=== PATIENT | female | born 1985 | race Caucasian/White ===

== ENCOUNTER 2017-08-04 19:04 | Emergency (ER) | payer OTHER ==
--- NOTE | 2017-08-04 19:15 | EDPHY ---
H & P Stated Complaint: L sided abd pain - Personal History LMP (Females 10-55): Irregular Current Tetanus/Diphtheria Vaccine: Unsure Current Tetanus Diphtheria and Acellular Pertussis (TDAP): Unsure - Medical/Surgical History Hx Asthma: No Hx Chronic Respiratory Disease: No Hx Diabetes: No Hx Cardiac Disease: No Hx Renal Disease: No Hx Cirrhosis: No Hx Alcoholism: No Hx HIV/AIDS: No Hx Splenectomy or Spleen Trauma: No Other PMH: ovarian, endometriosis, hipdysplasia, multible hipsurgeries, zagans procedure last monday - Social History Smoking Status: Never smoked Time Seen by Provider: 08/04/17 19:15 Constitutional: Initial Vital Signs Temperature (C) 36.6 C 08/04/17 19:06 Heart Rate 64 08/04/17 19:06 Respiratory Rate 16 08/04/17 19:06 Blood Pressure 130/93 H 08/04/17 19:06 O2 Sat (%) 97 08/04/17 19:06 O2 Delivery Mode Room Air Allergies/Adverse Reactions: No Known Allergies Allergy (Unverified 03/17/16 19:16) Home Medications: Medication Instructions Recorded Hydrocodon-Acetaminophen 5-325 02/27/16 Ms Contin/Oramorph 15 mg (*) 02/27/16 Oxycodone HCl 02/27/16 ALPRAZolam [Xanax 0.5 MG (*)] 0.5 mg PO TID PRN #15 tab 03/17/16 buPROPion [Wellbutrin 100mg (*)] 08/04/17 Medical Decision Making - Diagnostics Imaging: Discussed imaging studies w/ call taker Radiologist ED Course/Re-evaluation: CHIEF COMPLAINT: Left-sided abdominal pain HISTORY OF PRESENT ILLNESS: The patient is a 31 y/o female with a history of ovarian cysts and endometriosis complaining of left-sided lower abdominal pain onset this morning. Several hours ago the pain exacerbated and began to radiate to the right side. She is also having sharp left-sided shoulder pain. Denies history of kidney stones. Denies urinary complaints, chest pain, shortness of breath, bowel complaints, fever, paresthesias, numbness. REVIEW OF SYSTEMS: A 10 point review of systems was performed and is negative with the exception of the elements mentioned in the history of present illness. PHYSICAL EXAM: HR, BP, O2 Sat, RR. Temp noted General Appearance: Alert, well hydrated, appropriate, and non-toxic appearing. Head: Atraumatic without scalp tenderness or obvious injury Eyes: Pupils equal, round, reactive to light and accommodation, EOMI, no trauma , no injection. Ears: Clear bilaterally, no perforation, normal landmarks Nose: Atraumatic, no rhinorrhea, clear. Throat: There is no erythema or exudates, no lesions, normal tonsils, mucus membranes moist. Neck: Supple, nontender, no lymphadenopathy. Respiratory: No retractions, no distress, no wheezes, and no accessory muscle use. Lungs are clear to auscultation bilaterally. Cardiovascular: Regular rate and rhythm, no murmurs, rubs, or gallops. Good capillary refill all extremities. Gastrointestinal: LLQ non-reproducible pain. Abdomen is soft, non-distended, no masses, no rebound, no guarding, no peritoneal signs. Musculoskeletal: Normal active ROM of all extremities, atraumatic. Neurological: Alert, appropriate, and interactive. Non-focal neuro. Skin: No rashes, good turgor, no nodules on palpation. Past medical history: Ovarian cysts, endometriosis, hip dysplasia, Past surgical history: Multiple hip surgeries Family history: Denies Social history: at bedside, lives in [place], employed DIAGNOSTICS/PROCEDURES/CRITICAL CARE TIME: Kidney US: Findings pending at shift change Pelvic US: Findings pending at shift change DIFFERENTIAL DIAGNOSIS: The differential diagnosis for the patient's abdominal pain included but was not limited to ovarian cyst, pelvic inflammatory disease, ovarian torsion, urinary tract infection, ectopic , cholecystitis, and appendicitis. MEDICAL DECISION MAKING: The patient is a 31 y/o female with a history of ovarian cysts and endometriosis presenting with left-sided lower abdominal pain onset this morning. On exam I am not able to reproduce this pain with palpation and her abdomen is benign. Labs, kidney and pelvic US ordered. She is denying pain medication at this time. 1L IV NS given. 1930: Patient has blood in her urine. 2099: Patient care has been turned over to Dr. Langford at shift change, imaging results still pending. (Papo Reinoso) I assumed care of this patient at 9:00 p.m.. Pelvic ultrasound reported by to me via telephone by radiologist as negative/normal, he notes a small amount of fluid in the cervical canal. These results were relayed to the patient. She is being discharged home. She is not in pain. Questions were answered. (Lela Langford) - Data Points Laboratory Results: Laboratory Results 08/04/17 19:35 08/04/17 19:35 Medications Given: Discontinued Medications Sodium Chloride (Ns) 1,000 mls @ 0 mls/hr IV EDNOW ONE; Wide Open PRN Reason: Protocol Stop: 08/04/17 19:20 Last Admin: 08/04/17 19:36 Dose: 1,000 mls Departure - Departure Disposition: Home, Routine, Self-Care Clinical Impression: Kidney stone on left side Condition: Good Instructions: Kidney Stones (ED), How to Strain Your Urine (ED), Flank Pain (ED ) Additional Instructions: 1. Followup with your urologist within one week. 2. Return to the emergency apartment for fever, severe pain, inability to urinate or other concerns. 3. Strain urine to try and catch the kidney stone and bring this to the urology appointment. Referrals: Constanza Read NP [Primary Care Provider] - As per Instructions Cailin Motta MD [Medical Doctor] - As per Instructions Report Scribed for: Papo Reinoso Report Scribed by: Josette Conklin Date of Report: 08/04/17 Time of Report: 19:19
[2017-08-04] MEDS ORDERED: NS 1,000 ML IV ONE (19:19)
[2017-08-04 20:02] LABS: PLATELET COUNT 343 10^3/uL (150-400)
[2017-08-04 22:34] VITALS: BP 114/78
== END 2017-08-04 22:34 | disposition home or self-care (01) ==
DX: N20.0 Calculus of kidney (principal); E86.9 Volume depletion, unspecified
CPT/HCPCS: 82947-QW

== ENCOUNTER 2018-07-14 15:04 | Inpatient (IN) | payer OTHER ==
--- NOTE | 2018-07-14 16:26 | EDPHY ---
H & P Stated Complaint: L shoulder pain/swelling Time Seen by Provider: 07/14/18 16:00 HPI/ROS: CHIEF COMPLAINT: Left shoulder pain and left forearm swelling HISTORY OF PRESENT ILLNESS: The patient is a healthy 32-year-old female who comes to the emergency department complaining of left shoulder pain that began about a week ago while they were driving home from a road trip. She states that it hurts to raise her arm above her head. She thought that maybe she slept on it wrong or drove awkwardly in the car. It is continued to bother her but is not overwhelmingly painful or limiting. However over the last couple of days she also noticed some swelling in her left forearm. She has not had any weakness or limitations. She does complain of some paresthesias than tip of her 2nd 3rd and 4th digit. None on the palm or dorsal aspect of her hand wrist or forearm. She denies neck pain. She denies headache. 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 Severity: Moderate Modifying factors: None REVIEW OF SYSTEMS: Constitutional: denies: chills, fever, recent illness, recent injury EENTM: denies: blurred vision, double vision, nose congestion Respiratory: denies: cough, shortness of breath Cardiac: denies: chest pain, irregular heart rate, lightheadedness, palpitations Gastrointestinal/Abdominal: denies: abdominal pain, diarrhea, nausea, vomiting, blood streaked stools Genitourinary: denies: dysuria, frequency, hematuria, pain Musculoskeletal: denies: joint pain, muscle pain Skin: denies: lesions, rash, jaundice, bruising Neurological: denies: headache, numbness, paresthesia, tingling, dizziness, weakness Hematologic/Lymphatic: denies: blood clots, easy bleeding, easy bruising Immunologic/allergic: denies: HIV/AIDS, transplant 10 systems reviewed and negative except as noted EXAM: GENERAL: Well-appearing, well-nourished and in no acute distress. HEAD: Atraumatic, normocephalic. EYES: Pupils equal round and reactive to light, extraocular movements intact, sclera anicteric, conjunctiva are normal. ENT: TMs normal, nares patent, oropharynx clear without exudates. Moist mucous membranes. NECK: Normal range of motion, supple without lymphadenopathy or JVD. LUNGS: Breath sounds clear to auscultation bilaterally and equal. No wheezes rales or rhonchi. HEART: Regular rate and rhythm without murmurs, rubs or gallops. ABDOMEN: Soft, nontender, normoactive bowel sounds. No guarding, no rebound. No masses appreciated. BACK: No CVA tenderness, no spinal tenderness, step-offs or deformities EXTREMITIES: Normal range of motion, no pitting or edema. No clubbing or cyanosis. NEUROLOGICAL: Cranial nerves II through XII grossly intact. Normal speech, normal gait. 5/5 strength, normal movement in all extremities, normal sensation , normal reflexes PSYCH: Normal mood, normal affect. SKIN: Warm, dry, normal turgor, no visible rashes or lesions. Source: Patient, EMS Exam Limitations: No limitations - Personal History LMP (Females 10-55): IUD In Place Current Tetanus/Diphtheria Vaccine: Yes - Medical/Surgical History Hx Asthma: No Hx Chronic Respiratory Disease: No Hx Diabetes: No Hx Cardiac Disease: No Hx Renal Disease: No Hx Cirrhosis: No Hx Alcoholism: No Hx HIV/AIDS: No Hx Splenectomy or Spleen Trauma: No Other PMH: ovarian, endometriosis, hipdysplasia, multible hipsurgeries, charly procedure last monday - Social History Smoking Status: Never smoked Constitutional: Initial Vital Signs Temperature (C) 36.6 C 07/14/18 15:18 Heart Rate 89 07/14/18 15:18 Respiratory Rate 16 07/14/18 15:18 Blood Pressure 117/85 H 07/14/18 15:18 O2 Sat (%) 99 07/14/18 15:18 O2 Delivery Mode Room Air Allergies/Adverse Reactions: No Known Allergies Allergy (Unverified 07/14/18 15:21) Home Medications: Medication Instructions Recorded Bupropion HCl [Wellbutrin Xl] 300 mg PO DAILY 07/14/18 Apixaban [Eliquis] 10 mg PO BID #75 tab 07/16/18 Medical Decision Making - Diagnostics EKG Interpretation: An EKG obtained and was read and documented in trace view. Please see trace view for full reading and report. Sinus rhythm, early repolarization consistent with thin chest wall, similar to previous EKGs. Imaging: Discussed imaging studies w/ manager document Radiologist ED Course/Re-evaluation: I discussed the case with interventional Radiology Dr. Robles as well as with the patient and her . We will admit for anticoagulation and evaluation tomorrow. He states that there is good she and she will not require intravenous tPA. He spoke with the patient. 5:30 p.m. discussed the case with Dr. Mondragon who will admit. Differential Diagnosis: Partial list of the Differential diagnosis considered include but were not limited to; upper extremity DVT, thoracic outlet syndrome, coagulopathy and although unlikely based on the history and physical exam, I also considered infection, neuropathy. - Data Points Laboratory Results: Laboratory Results 07/15/18 04:57 07/15/18 04:57 Medications Given: Discontinued Medications Acetaminophen (Tylenol) 650 mg PO Q4HRS PRN PRN Reason: Pain, Mild/Fever, Can Take PO Stop: 01/10/19 17:47 Last Admin: 07/16/18 13:26 Dose: 650 mg Hydrocodone Bitart/Acetaminophen ([place] 5/325) 1 - 2 tab PO Q4HRS PRN PRN Reason: Pain, Moderate Able to Take PO Stop: 07/24/18 17:47 Last Admin: 07/15/18 21:10 Dose: 0.5 tab Apixaban (Eliquis) 10 mg PO BID ELISE Stop: 01/12/19 18:59 Last Admin: 07/16/18 18:38 Dose: 10 mg Bupropion HCl (Wellbutrin Xl) 300 mg PO DAILY [facility] Stop: 01/10/19 18:44 Last Admin: 07/16/18 08:12 Dose: 300 mg Enoxaparin Sodium (Lovenox) 60 mg SC EDNOW ONE Stop: 07/14/18 17:34 Last Admin: 07/14/18 18:21 Dose: 60 mg Fentanyl (Sublimaze) 0 mcg IVP ONCALL PRN PRN Reason: Per provider during procedure Stop: 07/15/18 16:40 Last Admin: 07/15/18 15:50 Dose: 100 mcg Heparin Sodium (Porcine) (Heparin Injection) 0 unit IVP EDNOW ONE Stop: 07/15/18 10:35 Last Admin: 07/15/18 13:25 Dose: Not Given Heparin Sodium (Porcine) (Heparin Injection) 0 unit IVP ONCE ONE Stop: 07/15/18 10:46 Last Admin: 07/15/18 11:19 Dose: 4,400 units Heparin Sodium (Porcine) (Heparin 50 Units/Ml (Premix)) 500 mls @ 0 mls/hr IV EDNOW ONE; Per Protocol PRN Reason: Protocol Stop: 07/15/18 10:35 Last Admin: 07/15/18 13:25 Dose: Not Given Heparin Sodium (Porcine) (Heparin 50 Units/Ml (Premix)) 500 mls @ 0 mls/hr IV CONT ONE; Per Protocol PRN Reason: Protocol Stop: 07/15/18 11:01 Last Admin: 07/15/18 11:24 Dose: 500 mls Lactated Ringer's (Lr) 1,000 mls @ 125 mls/hr IV CONT ELISE Stop: 01/11/19 11:59 Last Admin: 07/15/18 18:00 Dose: 1,000 mls Alteplase, Recombinant 5 mg/ (Sodium Chloride) 100 mls @ 0 mls/hr IV CONT ELISE; Per Protocol PRN Reason: Protocol Stop: 07/16/18 19:00 Last Admin: 07/16/18 15:44 Dose: 100 mls Heparin Sodium (Porcine) (Heparin 50 Units/Ml (Premix)) 500 mls @ 0 mls/hr IV CONT ELISE PRN Reason: As Directed Stop: 07/16/18 19:00 Last Admin: 07/15/18 16:15 Dose: 500 mls Lorazepam (Ativan) 0.5 - 1 mg PO Q8HRS PRN PRN Reason: Anxiety, Able to Take PO Stop: 01/10/19 17:47 Last Admin: 07/16/18 12:33 Dose: 0.5 mg Midazolam HCl (Versed) 0 mg IVP ONCALL PRN PRN Reason: Per provider during procedure Stop: 07/15/18 16:40 Last Admin: 07/15/18 15:50 Dose: 2 mg Ondansetron HCl (Zofran) 4 mg IVP Q4HRS PRN PRN Reason: Nausea/Vomiting, Can't Take PO Stop: 01/10/19 17:47 Last Admin: 07/16/18 12:33 Dose: 4 mg Ondansetron HCl (Zofran Odt) 4 mg PO Q4HRS PRN PRN Reason: Nausea/Vomiting, Use 1st Stop: 01/10/19 17:47 Last Admin: 07/15/18 21:09 Dose: 4 mg Point of Care Test Results: Chemistry 07/14/18 16:28 POC Troponin I 0.02 ng/mL ng/mL (0.00-0.08) Departure - Departure Disposition: Home, Routine, Self-Care Clinical Impression: DVT of upper extremity (deep vein thrombosis) Qualifiers: Affected thrombotic vein of extremity: unspecified vein of extremity Chronicity : acute Laterality: left Qualified Code(s): I82.622 - Acute embolism and thrombosis of deep veins of left upper extremity Condition: Good
[2018-07-14 16:34] LABS: PLATELET COUNT 330 10^3/uL (150-400)
--- NOTE | 2018-07-14 16:35 | CPEKG ---
Test Reason : OPEN Blood Pressure : / mmHG Vent. Rate : 076 BPM Atrial Rate : 077 BPM P-R Int : 145 ms QRS Dur : 073 ms QT Int : 355 ms P-R-T Axes : 029 063 039 degrees QTc Int : 400 ms Sinus rhythm Anterior infarct, possibly acute ST elevation, consider inferior injury Lateral leads are also involved Confirmed by Titi Sheth ([id number]) on 07/14/2018 4:35:19 PM Referred By: TITI SHETH Confirmed By:Titi Sheth
[2018-07-14 16:42] LABS: INR 1.17 (0.83-1.16); PROTIME(PATIENT) 14.4 SEC (12.0-15.0)
[2018-07-14] MEDS ORDERED: ENOXAPARIN 60 MG/0.6 ML SYR SC ONE (17:33)
[2018-07-14] MEDS ORDERED: LORazepam 0.5 MG TAB PO PRN (17:48)
[2018-07-14] MEDS ORDERED: diphenhydrAMINE 25 MG CAP PO PRN (17:48)
[2018-07-14] MEDS ORDERED: HYDROCODONE/APAP 5/325 TAB PO PRN (17:48)
[2018-07-14] MEDS ORDERED: ONDANSETRON DISINTEGRATING 4 MG TAB PO PRN (17:48)
--- NOTE | 2018-07-14 18:22 | PDGENHP ---
History and Physical - Chief Complaint left arm pain/swelling - History of Present Illness So source-patient provides history appears reliable. Her is bedside. EMR was reviewed and case discussed with ED provider HPI - is a pleasant 32-year-old female with past medical history significant for anxiety, PVCs, endometriosis who presents emergency department today with complaints of 1 week increasing left subscapular/shoulder pain and several days of right forearm swelling and pain. Patient and her were on a road trip for 2 days traveling back to [place] last week when she noted the left shoulder discomfort. Over the last several days with swelling patient has noted some numbness tingling over the 2nd 3rd 4th fingers. Patient initially thought that she had slept not position on her shoulder and/or was having issues with thoracic outlet syndrome but when she had progression of swelling and pain in her left forearm she presented to the ED for evaluation. Patient denies any chest pain, palpitations or shortness of breath. She denies any lower extremity or calf pain or swelling. Patient otherwise has been feeling well. In the ED, ultrasound of the upper extremity reveals DVT extending from the sub [place] V into the axillary vein with superficial thrombus to left basilar vein She does not smoke. She is on a Loestrin daily. No family history of DVT. History Information - Allergies/Home Medication List Allergies/Adverse Reactions: No Known Allergies Allergy (Unverified 07/14/18 15:21) Home Medications: Bupropion HCl [Wellbutrin Xl] 300 mg PO DAILY 07/14/18 [Last Taken 07/14/18] Norethindrone-E.estradiol-Iron [Loestrin Fe 1-20 Tablet] 1 each PO HS 07/14/18 [ Last Taken 07/13/18] I have personally reviewed and updated: family history, medical history, social history, surgical history Past Medical History: Reviewed patient's medication list not yet updated. Patient takes Loestrin daily, and bupropion. - Past Medical History Additional medical history: Anxiety, endometriosis, hip dysplasia. Possible history of thoracic outlet syndrome on the left - Surgical History Additional surgical history: Bilateral hip surgery for hip dysplasia - Family History Additional family history: Negative for DVT/PE - Social History Smoking Status: Never smoked Alcohol Use: None Drug Use: None Additional social history: Patient is lives with her . Review of Systems Review of Systems: ROS: 10pt was reviewed & negative except for what was stated in HPI & below Constitutional: Reports: no symptoms Cardiac: Reports: no symptoms Respiratory: Reports: no symptoms Gastrointestinal: Reports: no symptoms Muscolosketal: Reports: other (Left shoulder and arm pain see HPI) Neurological: Reports: numbness, tingling Physical Exam Physical Exam: Selected Entries 07/14/18 15:18 Blood Pressure Automatic Method Heart Rate 89 Respiratory 16 Rate O2 Sat (%) 99 Temperature (C) 36.6 C Blood Pressure 117/85 H Mean Arterial 95 Pressure (MAP) O2 Delivery Room Air Mode Temperature Oral Source Temp Pulse Resp BP Pulse Ox 36.6 C 76 16 126/86 H 99 07/14/18 15:18 07/14/18 17:47 07/14/18 15:18 07/14/18 17:47 07/14/18 17:47 Constitutional: no apparent distress, uncomfortable (Slightly uncomfortable with movement of her left upper extremity.), other (Patient's is at bedside.) Eyes: PERRL, anicteric sclera, EOMI, No scleral injection Ears, Nose, Mouth, Throat: moist mucous membranes Cardiovascular: regular rate and rhythym, no murmur, rub, or gallop, pulses symmetric bilaterally, No edema Peripheral Pulses: 2+: dorsalis-pedis (R), dorsalis-pedis (L) Respiratory: no respiratory distress, no rales or rhonchi, clear to auscultation , No inspiratory crackles Gastrointestinal: normoactive bowel sounds, soft, non-tender abdomen, no palpable masses Genitourinary: no bladder tenderness, No cowan in urethra Skin: warm, normal color, no rashes or abrasions Musculoskeletal: full muscle strength, other (Patient moves all extremities. Mildly increased swelling left forearm compared to the right.) Neurologic: AAOx3, sensation intact bilaterally, other (Grossly nonfocal. Moves all extremities.), No facial droop Psychiatric: interacting appropriately, not encephalopathic, thought process linear Lab Data & Imaging Review 07/14/18 16:20 07/14/18 16:20 WBC 10.55 10^3/uL (3.80-9.50) H 07/14/18 16:20 RBC 4.44 10^6/uL (4.18-5.33) 07/14/18 16:20 Hgb 14.4 g/dL (12.6-16.3) 07/14/18 16:20 Hct 43.5 % (38.0-47.0) 07/14/18 16:20 MCV 98.0 fL (81.5-99.8) 07/14/18 16:20 MCH 32.4 pg (27.9-34.1) 07/14/18 16:20 MCHC 33.1 g/dL (32.4-36.7) 07/14/18 16:20 RDW 12.3 % (11.5-15.2) 07/14/18 16:20 Plt Count 330 10^3/uL (150-400) 07/14/18 16:20 MPV 9.2 fL (8.7-11.7) 07/14/18 16:20 Neut % (Auto) 77.5 % (39.3-74.2) H 07/14/18 16:20 Lymph % (Auto) 16.9 % (15.0-45.0) 07/14/18 16:20 [place] % (Auto) 4.2 % (4.5-13.0) L 07/14/18 16:20 Eos % (Auto) 0.3 % (0.6-7.6) L 07/14/18 16:20 Baso % (Auto) 0.7 % (0.3-1.7) 07/14/18 16:20 Nucleat RBC Rel Count 0.0 % (0.0-0.2) 07/14/18 16:20 Absolute Neuts (auto) 8.19 10^3/uL (1.70-6.50) H 07/14/18 16:20 Absolute Lymphs (auto) 1.78 10^3/uL (1.00-3.00) 07/14/18 16:20 Absolute Monos (auto) 0.44 10^3/uL (0.30-0.80) 07/14/18 16:20 Absolute Eos (auto) 0.03 10^3/uL (0.03-0.40) 07/14/18 16:20 Absolute Basos (auto) 0.07 10^3/uL (0.02-0.10) 07/14/18 16:20 Absolute Nucleated RBC 0.00 10^3/uL (0-0.01) 07/14/18 16:20 Immature Gran % 0.4 % (0.0-1.1) 07/14/18 16:20 Immature Gran # 0.04 10^3/uL (0.00-0.10) 07/14/18 16:20 PT 14.4 SEC (12.0-15.0) 07/14/18 16:20 INR 1.17 (0.83-1.16) H 07/14/18 16:20 APTT 25.0 SEC (23.0-38.0) 07/14/18 16:20 D-Dimer 1.17 ug/mLFEU (0.00-0.50) H 07/14/18 16:20 Sodium 140 mEq/L (135-145) 07/14/18 16:20 Potassium 4.1 mEq/L (3.5-5.2) 07/14/18 16:20 Chloride 105 mEq/L (97-110) 07/14/18 16:20 Carbon Dioxide 22 mEq/l (22-31) 07/14/18 16:20 Anion Gap 13 mEq/L (6-14) 07/14/18 16:20 BUN 15 mg/dL (7-23) 07/14/18 16:20 Creatinine 0.8 mg/dL (0.6-1.0) 07/14/18 16:20 Estimated GFR > 60 07/14/18 16:20 Glucose 100 mg/dL (70-100) 07/14/18 16:20 Calcium 9.5 mg/dL (8.5-10.4) 07/14/18 16:20 POC Troponin I 0.02 ng/mL (0.00-0.08) 07/14/18 16:28 Beta HCG, Qual NEGATIVE 07/14/18 16:20 Imaging Review: Chest 2 View History: Chest Pain. Comparison: February 16 2016 Findings: No focal airspace consolidation, pleural effusion, or pneumothorax. Cardiac silhouette and pulmonary vascularity are within normal limits. Skeletal structures are age- appropriate. Impression: No acute cardiopulmonary process. Dictated By: Holland Cortes MD Duplex Doppler Venous Sonography with Color and Spectral Analysis of the Left Upper Extremity Clinical History: 32-year-old female with left arm pain. Rule out DVT. Technique: A high frequency transducer was used for imaging and Doppler study of the veins of the left upper extremity. Pulsed Doppler and color Doppler were utilized, along with various maneuvers to assess flow in the veins. Cursory evaluation of the contralateral arm was obtained for comparison purposes. Comparison Study: None. Findings: There is deep venous thrombosis involving the left axillary and subclavian vein, and superficial venous thrombosis involving the upper portion of the left basilic vein. The visualized lower left internal jugular vein and innominate vein, the left cephalic vein, brachial vein(s), and the radial, ulnar, and the axillary vein are patent. There is no localized fluid collection. Impression: There is deep venous thrombosis involving the left axillary and subclavian vein, and superficial venous thrombosis involving the upper portion of the left basilic vein. Findings were discussed with TITI SHETH MD at 17:02, on 07/14/2018. Dictated By: Justin Mendez MD Visualized and Interpreted Chest x-ray results: Yes Assessment & Plan Assessment: Pleasant 32-year-old female with history of endometriosis on OCP otherwise healthy who presents emergency department today with complaints of 1 week a left shoulder collar bone pain and several days of left forearm swelling. #DVT of upper extremity (deep vein thrombosis) (Acute) - patient seen and evaluated by Dr. Sophia romo with IR who recommended subcu Lovenox at this time and make patient NPO. Potential for direct thrombolytics therapy in the morning if patient without any improvement in her symptoms tomorrow. Patient without any family history of DVTs. She has multiple orthopedic surgeries previously without any personal history of DVTs in the past. She is chronically on Loestrin at this time of advised her to hold her estrogen supplementation. She does not smoke. She did have recent [address] trip a week ago when her symptoms started. She denies any local injuries or trauma. # acute pain - pain medications will be available p.r.n.. FEN - patient tolerating oral hydration well. Will encourage her to continue drink water. She did report that earlier today she was on a several mi bike ride. Will hold off on IV fluids. Advised patient if she feels dehydrated overnight while NPO that we can add on continuous fluids. Electrolytes are adequate did not require placement at this time. Regular diet until midnight then NPO as per IR request. PPX - therapeutic lovenox Cor status-full Disposition-patient admitted observation status at this time pending re- evaluation in the morning. May require additional hospital stay depending if patient should proceed with direct thrombolytic therapy tomorrow.
[2018-07-14] MEDS: buPROPion XL 150 MG TAB PO SCH (21:50)
[2018-07-15 05:27] LABS: PLATELET COUNT 298 10^3/uL (150-400)
[2018-07-15 05:35] LABS: INR 1.18 (0.83-1.16); PROTIME(PATIENT) 14.5 SEC (12.0-15.0)
[2018-07-15] MEDS: buPROPion XL 150 MG TAB PO SCH (08:35)
[2018-07-15] MEDS: ACETAMINOPHEN 325 MG TAB PO PRN ×3 (08:36→21:02)
[2018-07-15] MEDS ORDERED: HEPARIN/DEXTROSE 500 ML IV ONE ×2 (10:34→11:00)
[2018-07-15] MEDS ORDERED: HEPARIN 10,000 UNIT/10 ML MDV (1,000 UNIT/ML) IVP ONE ×2 (10:34→10:45)
--- NOTE | 2018-07-15 10:44 | ASMTCMCOM ---
CM Note CM Note Notes: Pt is a 32 y/o female admitted for upper extremity DVT. Pt will most likely d/c independent when medically stable. No therapies ordered at this time. CM available for changes. Plan: Independent Date Signed: 07/15/2018 10:44 AM Electronically Signed By:JESSIE Lou
--- NOTE | 2018-07-15 11:52 | HOSPPROG ---
Hospitalist Progress Note Assessment/Plan: Nelida is a 32-year-old female with history of endometriosis on OCP otherwise healthy who presents emergency department today with complaints of 1 week a left shoulder collar bone pain and several days of left forearm swelling. Today is my first encounter, chart reviewed. *DVT of left upper extremity -on Heparin gtt -reviewed patient's care with Dr Cortes- he will see Nelida today for discussion and likely treatment w TPA -she likely has Thoracic outlet syndrome -she is on Loestrin for control -reviewed her ultrasound-deep venous thrombosis involving the left axillary and subclavian vein, and superficial venous thrombosis involving the upper portion of the left basilic vein. # acute pain -much improved in her left arm -having pain in the subclavian area #plan: continue NPO status, heparin gtt, IV fluids-discussed plan of care w Nelida and her mom. She will require another midnight stay due to the above. Subjective: Nelida said her pain in left arm is much improved, has some pain above the left collar bone area. Objective: Vital Signs Temp Pulse Resp BP Pulse Ox 36.6 C 80 16 102/76 95 07/15/18 08:00 07/15/18 08:00 07/15/18 08:00 07/15/18 08:00 07/15/18 08:00 Laboratory Results 07/15/18 04:57 07/15/18 04:57 07/14/18 07/15/18 07/16/18 05:59 05:59 05:59 Output Total 450 Balance -450 PT 14.5 SEC (12.0-15.0) 07/15/18 04:57 INR 1.18 (0.83-1.16) H 07/15/18 04:57 - Physical Exam Constitutional: no apparent distress, appears nourished, other (slender) Eyes: PERRL Ears, Nose, Mouth, Throat: hearing normal Cardiovascular: regular rate and rhythym Respiratory: no respiratory distress Gastrointestinal: normoactive bowel sounds Skin: warm, other (left arm without any swelling, non tender) Musculoskeletal: full muscle strength Neurologic: AAOx3 Psychiatric: interacting appropriately ICD10 Worksheet Patient Problems: Problems Problem Status Onset DVT of upper extremity (deep vein thrombosis) Acute
[2018-07-15] MEDS: LR 1,000 ML IV SCH ×2 (12:01→18:00)
[2018-07-15] MEDS ORDERED: ALTEPLASE 5 MG in NS 100 ML IV SCH (15:00)
--- NOTE | 2018-07-15 15:12 | PDPROPOC ---
Sedation Plan of Care ASA Classification: ASA 2 Mallampati Score: Class 2 Mallampati Reference Image:
[2018-07-15] MEDS ORDERED: fentaNYL 100 MCG/2 ML INJ ONE (15:29)
[2018-07-15] MEDS ORDERED: NALOXONE HCL 0.4 MG/ML INJ ONE (15:29)
[2018-07-15] MEDS ORDERED: FLUMAZENIL 0.5 MG/5 ML MDV IVP ONE (15:29)
[2018-07-15] MEDS ORDERED: MIDAZOLAM 2 MG/2 ML VIAL ONE (15:29)
[2018-07-15] MEDS: ONDANSETRON 4 MG/2 ML VIAL IVP PRN (15:33)
[2018-07-15] MEDS ORDERED: fentaNYL 100 MCG/2 ML INJ IVP PRN (15:40)
[2018-07-15] MEDS ORDERED: FLUMAZENIL 0.5 MG/5 ML MDV IVP PRN (15:40)
[2018-07-15] MEDS ORDERED: MIDAZOLAM 2 MG/2 ML VIAL IVP PRN (15:40)
[2018-07-15] MEDS ORDERED: NALOXONE HCL 0.4 MG/ML INJ IVP PRN (15:40)
[2018-07-15] MEDS ORDERED: NS 1,000 ML IV SCH (15:45)
[2018-07-15] MEDS ORDERED: HEPARIN/DEXTROSE 25,000 UNIT/500 ML BAG ONE (15:52)
--- NOTE | 2018-07-15 16:07 | PDRADPN ---
Radiology Procedure Note Date of Procedure: 07/15/18 Radiologist: Holland Cortes Anesthesia: IV Sedation Pre-op Diagnosis: subclavian thrombus Post-op Diagnosis: same Procedure: Day 1 lysis Inf/Abcess present in the surg proc area at time of surgery?: No
[2018-07-15] MEDS ORDERED: HEPARIN/DEXTROSE 500 ML IV SCH (16:15)
[2018-07-15] MEDS: ALTEPLASE 5 MG in NS 100 ML IV SCH ×3 (16:15→23:56)
--- NOTE | 2018-07-15 16:43 | PDMN ---
Medical Necessity Medical necessity: [facility] [place] Cardiovascular Surgery or Procedure: 32 yo presents w/ acute DVT to LUE, initially OBS for workup/tx w/ lovenox, IR consulted, heparin gtt started, pt going to IR for thrombolysis procedure w/ tPA , change to IP status 07/15/18@1324 per [employer] order.
[2018-07-15] MEDS ORDERED: IOPAMIDOL (ISOVUE-300) 100 ML BTL ONE (16:48)
[2018-07-16] MEDS: ACETAMINOPHEN 325 MG TAB PO PRN ×3 (03:04→13:26)
[2018-07-16 05:20] LABS: PLATELET COUNT 223 10^3/uL (150-400)
[2018-07-16] MEDS: ALTEPLASE 5 MG in NS 100 ML IV SCH ×3 (05:20→15:44)
[2018-07-16] MEDS: buPROPion XL 150 MG TAB PO SCH (08:12)
[2018-07-16] MEDS: ONDANSETRON 4 MG/2 ML VIAL IVP PRN (12:33)
[2018-07-16] MEDS ORDERED: traMADol 50 MG TAB PO PRN (13:54)
[2018-07-16] MEDS ORDERED: IOPAMIDOL (ISOVUE-300) 100 ML BTL ONE (15:43)
[2018-07-16] MEDS ORDERED: NALOXONE HCL 0.4 MG/ML INJ ONE (15:57)
[2018-07-16] MEDS ORDERED: MIDAZOLAM 2 MG/2 ML VIAL ONE (15:58)
[2018-07-16] MEDS ORDERED: fentaNYL 100 MCG/2 ML INJ ONE (15:58)
[2018-07-16] MEDS ORDERED: FLUMAZENIL 0.5 MG/5 ML MDV IVP ONE (15:58)
--- NOTE | 2018-07-16 16:20 | PDHPUP ---
History & Physical Update H&P update statement: This history and physical update is based on an assessment of the patient which was completed after admission or registration (within 24 hours), but prior to the surgery/procedure. LUE venogram f/u lysis H&P update: H&P reviewed & patient examined, no change in patient's condition since H&P completed
--- NOTE | 2018-07-16 16:23 | PDRADPN ---
Radiology Procedure Note Date of Procedure: 07/16/18 Radiologist: Anibal Hewitt Anesthesia: IV Sedation Pre-op Diagnosis: LUE venous thrombosis Post-op Diagnosis: LUE venous thrombosis Indication: LUE venogram/ TOS Procedure: LUE venogram Finding(s): Improvement of clot with near complete resolution of thrombus with critical, high grade stenosis at right subclavian vein suggestive of venous TOS. Surgical consultation is recommended. Please initiate fully therapeutic anticoagulation after procedure. Inf/Abcess present in the surg proc area at time of surgery?: No
--- NOTE | 2018-07-16 16:43 | GCON ---
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 She just returned from a driving trip to [place], which was not involving any trauma, and pickett s had no history of thromboembolic disease in the past. She has had some shoulder difficulty making it difficult to raise her arms over her head but was unaware of any other diagnoses. She presented t o the emergency room where she was found to have extensive upper extremity deep vein thrombosis. She was initially treated with Lovenox and seen by Interventional Radiology and started on a tPA drip. She is going back this afternoon for a 2nd look and may discontinue it at that time. She does take o ral contraceptives but has no family history of deep vein thrombosis, is a lifelong nonsmoker and no other venous thromboembolic risk factors. REVIEW OF SYSTEMS: Otherwise negative. PAST MEDICAL HISTORY: Includes anxiety, endometriosis, hip dysplasia. PAST SURGICAL HISTORY: She has had bilateral hip surgery in the distant past. FAMILY HISTORY: Noncontributory. SOCIAL HISTORY: She is a nonsmoker. No significant alcohol. CURRENT MEDICATIONS: Include Tylenol, [place], tPA, Wellbutrin, LR, Ativan, morphine, Zofran, normal s tri, Ultram p.r.n. PHYSICAL EXAMINATION: VITAL SIGNS: She is afebrile. Blood pressure 118/73, respirations 16, heart rate 83, oxygen saturation 100% on 2 L. GENERAL: She was alert, awake, no apparent distress and abl e to speak in full sentences without using accessory muscles for breathing. HEENT: Pupils equally r ound and reactive to light, nonicteric and noninjected. Mucous membranes moist without erythema or e xudate. NECK: Supple without adenopathy or jugular vein distention. LUNGS: Breath sounds clear to auscultation bilaterally without wheeze or rales. HEART: Regular rate and rhythm without murmurs, rubs, gallops. ABDOMEN: Soft, nontender, nondistended without hepatosplenomegaly. EXTREMITIES: Sh ow no clubbing, cyanosis, or edema. Her left upper extremity showed no evidence of edema. It was no ntender. NEUROLOGIC: Exam was nonfocal including cranial nerves, deep tendon reflexes. SKIN: Warm , dry, without evidence of rash. OBJECTIVE DATA: Includes ultrasound findings as described above. White count is normal. Hematocrit was 39 on admission, 35 today, platelets normal. Basic metabolic panel was also normal. ASSESSMENT PLAN: Upper extremity deep vein thrombosis. It is possible she has idiopathic thoracic o utlet syndrome that would lead to this possibility and she should eventually undergo evaluation valdez reyes by a vascular surgeon to determine whether this is in fact true or not. She is getting tPA now. Her oral contraceptives alone I think are a minor risk factor for venous thromboembolic disease, and I do not think it would result in this extensive disease. Subsequently, I did send a Factor V Leide n, lupus anticoagulant and prothrombin 2210a for now to see if this would impact. In this acute sett ing, it is difficult to do a hypercoagulable workup at this time. She does appear to be fairly stabl e and probably okay to discharge once the tPA is completed. I would anticoagulate her for at least 3 months. We could consider Hematology consult as an outpatient as well. /[id number]/MODL
[2018-07-16] MEDS ORDERED: APIXABAN 5 MG TAB PO SCH (19:00)
[2018-07-16 19:31] VITALS: BP 124/86
--- NOTE | 2018-07-16 19:40 | GDS ---
[f rep st] DISCHARGE SUMMARY DISCHARGE DIAGNOSES: 1. Upper extremity deep venous thrombosis due to thoracic outlet syndrome. 2. Status post tissue plasminogen activator. 3. 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 Upon presentation to the emergency room, upper extremity ultrasound re vealed DVT extending from the subclavian vein into the axillary vein with a superficial thrombosis in the left basilar vein. She is on daily control. She was admitted to the ICU and underwent lo calized tPA therapy with Interventional Radiology. She was found to have high-grade stenosis of the right subclavian vein suggestive of a thoracic outlet syndrome. TPA had a great result with near com plete resolution of the thrombus. She has been cleared to discharge on anticoagulation therapy. She will begin Eliquis this evening 2 hours postprocedure as recommended by Dr. Hewitt. She wishes to go home tonight once her observation period post IR procedure is complete. Outpatient surgical cons ultation is recommended. She may need 1st rib resection. Etiology of her clot is more likely anatom ic than a hypercoagulable state, but we did recommend discontinuing control. Hypercoagulable t esting was ordered and is pending at discharge. DISCHARGE MEDICATIONS: 1. Please see computerized record for full detailed list. New medication is Eliquis 10 mg p.o. twic e daily for 7 days, then reduce to 5 mg p.o. twice daily. 2. Discontinue oral contraceptive. DISCHARGE INSTRUCTIONS: 1. Outpatient surgical consultation for thoracic outlet syndrome. 2. Limit upper extremity exercise. TIME SPENT ON DISCHARGE: Greater than 30 minutes' time was spent arranging this discharge. The wilber ent was seen and examined by me on the day of discharge. /[id number]/MODL
[2018-07-18] MEDS ORDERED: IOPAMIDOL (ISOVUE-300) 100 ML BTL ONE (12:38)
== END 2018-07-16 20:05 | disposition home or self-care (01) | DRG 301 ==
LOC: F3E 20:05 → OBSVTOIN 07-15 13:24 → F2N 07-15 16:37
PROVIDERS: ADMIT Family Medicine; ATTEND Family Medicine
DX: I82.B12 Acute embolism and thrombosis of left subclavian vein (principal); I82.B22 Chronic embolism and thrombosis of left subclavian vein; G54.0 Brachial plexus disorders
CPT/HCPCS: 84484-ER; 85520-90; C1757; C1769; C1894; G0378; J1644; J1650; J2250; J2310; J2405; J2997; J3010; Q9967